=== PATIENT | male | born 1990 | race African-American/Black ===

== ENCOUNTER 2019-10-27 20:00 | Emergency (ER) | payer MEDICAID ==
[~2019-10-27] VITALS: Ht 182.9 cm; Wt 65.8 kg
[2019-10-27 20:20] VITALS: BP 168/69
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
== END 2019-10-27 22:00 | disposition home or self-care (01) ==
LOC: ER 20:00
DX: M54.5 Low back pain (principal); E03.9 Hypothyroidism, unspecified; G40.909 Epilepsy, unspecified, not intractable, without status epilepticus; Z90.89 Acquired absence of other organs
CPT/HCPCS: 99281

== ENCOUNTER 2021-11-03 21:08 | Emergency (ER) | payer MEDICAID ==
[~2021-11-03] VITALS: Ht 182.9 cm; Wt 104.5 kg
[2021-11-03] MEDS ORDERED: NAPROXEN 500 MG TABLET PO STA (22:52)
[2021-11-03] MEDS ORDERED: NAPR-514 PO (23:16)
[2021-11-03] MEDS ORDERED: ORPH100T PO (23:16)
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
[2021-11-03] MEDS ORDERED: ORPHENADRINE CITRATE 60 MG/2 ML VIAL. IM ONE (23:30)
[2021-11-03] MEDS ORDERED: KETOROLAC 30 MG/ML VIAL. IM ONE (23:30)
[2021-11-03] MEDS ORDERED: DEXAMETHASONE SOD PHOS 20 MG/5 ML VIAL. IM ONE (23:30)
== END 2021-11-03 23:42 | disposition home or self-care (01) ==
LOC: ER 21:08
DX: S13.9XXA Sprain of joints and ligaments of unspecified parts of neck, initial encounter (principal); E03.9 Hypothyroidism, unspecified; G40.909 Epilepsy, unspecified, not intractable, without status epilepticus; V49.59XA Passenger injured in collision with other motor vehicles in traffic accident, initial encounter; Y92.488 Other paved roadways as the place of occurrence of the external cause; Y93.89 Activity, other specified; Y99.8 Other external cause status
CPT/HCPCS: 96372; 99284; J1885; J2360; 99282